=== PATIENT | female | born 1975 | race Caucasian/White ===

== ENCOUNTER 2023-02-04 10:00 | Outpatient (CLI) | payer OTHER | END 2023-02-04 10:01 | disposition home or self-care (01) | LOC: SCSMRI 10:00 | PROVIDERS: ATTEND Family Medicine | DX: S90.31XD Contusion of right foot, subsequent encounter (principal); S92.344A Nondisplaced fracture of fourth metatarsal bone, right foot, initial encounter for closed fracture; R60.0 Localized edema ==